=== PATIENT | female | born 1950 | race Caucasian/White ===

== ENCOUNTER 2017-01-10 19:37 | Inpatient (IN) | payer OTHER ==
[~2017-01-10] VITALS: Ht 152.4 cm; Wt 86.0 kg
[2017-01-10 19:49] VITALS: BP 125/72; RESP 19
[2017-01-10] MEDS ORDERED: SOT120 PO (19:50)
[2017-01-10] MEDS ORDERED: [UNRECOGNIZED DRUG - OTHER] PO (19:50)
[2017-01-10] MEDS ORDERED: DIGO250T16 PO (19:50)
[2017-01-10] MEDS ORDERED: LAS20 PO (19:50)
[2017-01-10] MEDS ORDERED: NITROGLYCERIN PO (19:50)
[2017-01-10] MEDS ORDERED: ASPI-664 PO (19:50)
[2017-01-10 20:00] VITALS: Ht 152.4 cm; Wt 86.0 kg
[2017-01-10] MEDS ORDERED: ONDANSETRON 4 MG INJ IV PRN (20:00)
[2017-01-10] MEDS ORDERED: morphine 2 MG INJ IV PRN (20:00)
[2017-01-10 20:20] VITALS: PULSE 74
[2017-01-10 20:22] VITALS: PULSE 74
[2017-01-10] MEDS ORDERED: NACL 0.9% 3 ML SYG IV SCH (20:30)
[2017-01-10] MEDS ORDERED: NITROGLYCERIN PO SCH (21:00)
[2017-01-10] MEDS ORDERED: [UNRECOGNIZED DRUG - OTHER] PO SCH (21:00)
[2017-01-10 21:21] LABS: BASOPHIL # 0.1 10^3/ul (0.0-0.1); BASOPHILS % 0.6 % (0.0-2.0); EOSINOPHILS # 0.2 10^3/ul (0.0-0.5); EOSINOPHILS % 2.1 % (0.0-7.0); HEMATOCRIT 44.2 % (37.0-47.0); HEMOGLOBIN 14.2 g/dl (12.0-16.0); LYMPHOCYTES # 3.7 10^3/ul (0.8-2.9); LYMPHOCYTES % 32.9 % (15.0-51.0); MEAN CORPUSCULAR HEMOGLOBIN 28.1 pg (29.0-33.0); MEAN CORPUSCULAR HGB CONC 32.1 g/dl (32.0-37.0); MEAN CORPUSCULAR VOLUME 87.5 fl (82.0-101.0); MEAN PLATELET VOLUME 10.9 fl (7.4-10.4); MONOCYTE # 0.9 10^3/ul (0.3-0.9); MONOCYTES % 7.7 % (0.0-11.0); NEUTROPHIL # 6.3 10^3/ul (1.6-7.5); NEUTROPHILS % 56.5 % (39.0-77.0); PLATELET COUNT 273 10^3/UL (140-415); RED BLOOD COUNT 5.05 10^6/ul (4.20-5.40); RED CELL DISTRIBUTION WIDTH 15.2 % (11.5-14.5); WHITE BLOOD COUNT 11.1 10^3/ul (4.8-10.8)
[2017-01-10] MEDS ORDERED: LEVO750P IV (21:41)
[2017-01-10] MEDS ORDERED: LISI2.5T59 PO (21:41)
[2017-01-10] MEDS ORDERED: NITR1PAT10 TD (21:41)
[2017-01-10] MEDS ORDERED: DOCU-144 PO (21:41)
[2017-01-10 21:44] LABS: ALANINE AMINOTRANSFERASE 29 IU/L (13-69); ALBUMIN 3.8 g/dl (3.3-4.9); ALBUMIN/GLOBULIN RATIO 1.08; ALKALINE PHOSPHATASE 203 IU/L (42-121); ANION GAP 11 (8-16); ASPARTATE AMINO TRANSFERASE 22 IU/L (15-46); BILIRUBIN,INDIRECT 2.1 mg/dl (0-1.1); BILIRUBIN,TOTAL 2.1 mg/dl (0.2-1.3); BLOOD UREA NITROGEN 14 mg/dl (7-20); CALCIUM 9.6 mg/dl (8.4-10.2); CARBON DIOXIDE 27 mmol/L (21-31); CHLORIDE 105 mmol/L (97-110); CREATININE 0.85 mg/dl (0.44-1.00); GLUCOSE 147 mg/dl (70-220); MAGNESIUM 1.9 mg/dl (1.7-2.5); PHOSPHORUS 3.9 mg/dl (2.5-4.9); POTASSIUM 4.1 mmol/L (3.5-5.1); SODIUM 139 mmol/L (135-144); TOTAL PROTEIN 7.3 g/dl (6.1-8.1)
[2017-01-10 21:56] LABS: TROPONIN-I < 0.012 ng/ml (0.00-0.12)
[2017-01-10] MEDS: SOTALOL 80 MG TAB PO SCH (22:04)
[2017-01-10] MEDS: HEPARIN 5,000 UNIT/0.5 ML VIAL SC SCH (22:13)
[2017-01-10 23:32] VITALS: BP 125/72; RESP 19
[2017-01-11] VITALS (12 sets, daily range): BP systolic 110–139; BP diastolic 57–69; PULSE 53–69; RESP 16–20
[2017-01-11] MEDS ORDERED: GLUCAGON 1 MG INJ IM PRN (00:45)
[2017-01-11] MEDS ORDERED: GLUCOSE GEL 15 GRAM TUBE PO PRN ×2 (00:45)
[2017-01-11] MEDS ORDERED: DEXTROSE 50% 50 ML SYRINGE IV PRN ×2 (00:45)
[2017-01-11] MEDS ORDERED: GLUCOSE GEL 15 GRAM TUBE BUCCAL PRN (00:45)
[2017-01-11] MEDS: ACCU-CHEK XX SCH (01:06)
[2017-01-11] MEDS: FUROSEMIDE 20 MG TAB PO SCH (08:22)
[2017-01-11] MEDS: SOTALOL 80 MG TAB PO SCH ×2 (08:23→20:33)
[2017-01-11] MEDS: INSULIN GLARGINE [LANtus] 3 ML PEN SC SCH (08:36)
[2017-01-11] MEDS: HEPARIN 5,000 UNIT/0.5 ML VIAL SC SCH ×2 (08:36→20:38)
[2017-01-11] MEDS ORDERED: DIGOXIN 0.25 MG TAB PO SCH (09:00)
[2017-01-11] MEDS ORDERED: ASPIRIN (EC) 81 MG TAB PO SCH (09:00)
[2017-01-11] MEDS: INSULIN ASPART [NOVOLOG] 3 ML PEN SC SCH ×3 (12:58→20:34)
[2017-01-11] MEDS: DIGOXIN 0.25 MG TAB PO SCH (13:10)
[2017-01-11] MEDS ORDERED: NITROGLYCERIN (SL) 0.4 MG TAB SL PRN (14:00)
[2017-01-11] MEDS ORDERED: MAGNESIUM HYDROXIDE 30ML CUP PO PRN (14:00)
[2017-01-11] MEDS ORDERED: ACETAMINOPHEN 325 MG TAB PO PRN (14:00)
[2017-01-11] MEDS ORDERED: DOCUSATE SODIUM 100 MG CAP PO PRN (14:00)
[2017-01-11] MEDS ORDERED: NACL 0.9% 3 ML SYG IV SCH (14:00)
[2017-01-11] MEDS ORDERED: BISACODYL 10 MG SUPP PR PRN (14:00)
[2017-01-11] MEDS ORDERED: HYDROCODONE/APAP (5/325) TAB PO PRN ×2 (14:00)
[2017-01-11] MEDS ORDERED: ACETAMINOPHEN 650 MG SUPP PR PRN (14:00)
[2017-01-11] MEDS ORDERED: morphine 2 MG INJ IV PRN (14:00)
--- NOTE | 2017-01-11 14:27 | RADRPT ---
PROCEDURE: XR Chest. CLINICAL INDICATION: Shortness of breath. TECHNIQUE: Single frontal view. COMPARISON: None. FINDINGS: There is mild atelectasis at the lung bases. The lungs are otherwise clear. The heart is enlarged. There is calcification in the aorta consistent with atherosclerosis. There is no pleural effusion. There is no pneumothorax. IMPRESSION: 1. Mild atelectasis at the lung bases. 2. Cardiomegaly and atherosclerosis. RPTAT: QQ .Gerhard Maradiaga MD, MD Date Time Electronically viewed and signed by .Gerhard Maradiaga MD, MD on 01/11/2017 14:26 .R/
--- NOTE | 2017-01-11 14:34 | HP ---
Date/Time of Note Date/Time of Note DATE: 01/11/17 TIME: 14:23 Assessment/Plan VTE Prophylaxis VTE Prophylaxis Intervention: SCD's Lines/Catheters IV [facility]from [facility] Saline Lock Assessment/Plan Chief Complaint/Hosp Course Assessment and plan 1. Reported dyspnea on exertion and diaphoresis likely secondary to CHF exacerbation. Patient with known history of systolic CHF. Also noted with elevated BNP from previous hospital. Follow-up chest x-ray. Slater Apprentice consultation to follow. We will follow up an echocardiogram. 2. Reported extensive history of CAD. Patient resumed on adequate therapy as well as statin medication. Follow-up with aerobics teacher recommendations. of note, patient had been reportedly advised for coronary artery bypass for several years ago however refused at that time. Will follow up with cardiology recommendations. Continue telemetry monitoring for now. 3. Essential hypertension. Will resume patient's antihypertensives and adjust 5. Dyspnea. Follow-up on fasting with panel. Start on statin medication. 6. History of diabetes. Noted with A1c above 8. Insulin regimen. Blood dyspnea. 7. History of CVA. No reported past residual deficits. 8.. History of depression. Stable at present. Will monitor for now. Admission Process time >40 minutes Discussed plan of care with Dr. Ravi Problems: HPI/ROS Admit Date/Time Admit Date/Time Jan 10, 2017 at 19:37 Hx of Present Illness This is a 66-year-old female with reported past medical history of CVA in 2016 with no residual deficit, coronary artery disease with reported myocardial infarction 4 years ago, diabetes not on insulin, hypertension, systolic and diastolic heart failure, dyslipidemia, who reportedly went to [facility] from outside hospital ([facility]) due to insurance issue due to his reported diaphoresis and dyspnea on exertion. Patient of note does fly back and forth from [place] to visit her daughter and also has an extensive cardiac history reportedly being treated for a myocardial infarction in around 4 years ago. He of note was at that time told she had severe coronary artery disease requiring coronary artery bypass however despite multiple recommendations to the patient to have procedure she refused. I spoke with the daughter who had a report showing that she had an LAD with severe stenosis of the proximal portion and mid part total cut off. Per the report also showed her to have RCA with severe stenosis at the proximal and mid part. It also reported circumflex with moderate stenosis at the proximal portion. Patient's daughter did report that the patient has been in and out of the hospital for the past 10 years due to reported chest pain but refused surgical intervention at that time. Patient did have initial troponins which were negative. Her previous echocardiogram done per report showed her to have septal and apical akinesis with ejection fraction of 40%. Her initial d-dimer was negative however she did have a proBNP of 1197. A1c was also seen at 8.4 she did also have slight leukocytosis with white count of 11.1 remained afebrile. Currently the patient denies any chest pain or shortness of breath and she no longer reports being diaphoretic. No reports of sick contacts prior to this admission. He was per report from [facility] that patient was recommended for possible angiogram due to her severe long-standing coronary artery disease. We will evaluate her for the aformentiond issues. ROS 12 point review of systems obtained entirely negative except as mentioned in history of present illness PMH/Family/Social Past Medical History Medical/surgical history CVA in 2016 with no residual deficit, coronary artery disease with reported myocardial infarction 4 years ago, diabetes not on insulin, hypertension, systolic and diastolic heart failure, dyslipidemia Social History Smoking Status: Never smoker Exam/Review of Systems Vital Signs Vitals Vital Signs Date Time Temp Pulse Resp B/P Pulse Ox O2 Delivery O2 Flow Rate FiO2 01/11/17 12:31 63 01/11/17 11:20 98.4 20 139/67 97 01/10/17 20:00 Nasal Cannula 2.0 Intake and Output 01/10/17 01/10/17 01/11/17 15:00 23:00 07:00 Intake Total 240 ml Balance 240 ml Exam Constitutional: alert, oriented Psych: nl mood/affect Head: normocephalic Neck: supple, No jvd Respiratory: clear to auscultation, normal air movement Cardiovascular: other (bradycardic to regular rate ) Gastrointestinal: non-tender, soft Musculoskeletal: nl extremities to inspection Extremities: normal pulses Neurological: MANAGEMENT INFORMATION SYSTEMS DIRECTOR II-XII intact, nl mental status, nl speech Skin: nl turgor Labs Result Diagram: 01/10/17210901/10/172109 Medications Medications Current Medications Furosemide (Lasix) 20 mg DAILY PO Last administered on 01/11/17t 08:22; Admin Dose 20 MG; Start 01/11/17 at 09:00 Sotalol HCl (Betapace) 40 mg BID PO Last administered on 01/11/17 08:23; Admin Dose 40 MG; Start 01/10/17 at 21:00 Miscellaneous Information 5 mg BID PO ; Start 01/10/17 at 21:00; Status UNV Miscellaneous Information 2.6 mg BID PO ; Start 01/10/17 at 21:00; Status UNV Heparin Sodium (Porcine) (Heparin (5000 Units/0.5 ml)) 5,000 unit BID SC Last administered on 01/11/17 08:36; Admin Dose 5,000 UNIT; Start 01/10/17 at 21:00 Ondansetron HCl (Zofran Inj) 4 mg Q6H PRN IV NAUSEA AND/OR VOMITING; Start at 20:00 Diagnostic Test (Pha) (Accu-Chek) 1 ea 02 XX ; Start 01/11/17 at 02:00 Insulin Glargine (Lantus) 10 unit DAILY@08 SC Last administered on 01/11/17 08 :36; Admin Dose 10 UNIT; Start 01/11/17 at 08:00 Miscellaneous Information 1 ea NOTE XX ; Start 01/11/17 at 00:45 Glucose (Glutose) 15 gm Q15M PRN PO DECREASED GLUCOSE; Start 01/11/17 at 00:45 Glucose (Glutose) 22.5 gm Q15M PRN PO DECREASED GLUCOSE; Start 01/11/17 at 00: 45 Dextrose (D50w Syringe) 25 ml Q15M PRN IV DECREASED GLUCOSE; Start 01/11/17 at 00:45 Dextrose (D50w Syringe) 50 ml Q15M PRN IV DECREASED GLUCOSE; Start 01/11/17 at 00:45 Glucagon (Glucagen) 1 mg Q15M PRN IM DECREASED GLUCOSE; Start 01/11/17 at 00:45 Glucose (Glutose) 15 gm Q15M PRN BUCCAL DECREASED GLUCOSE; Start 01/11/17 at 00 :45 Influenza Virus Vaccine (Fluzone) 0.5 ml ONCE ONCE IM* ; Start 01/12/17 at 09:00 ; Stop 01/12/17 at 09:01 Digoxin (Digoxin) 0.25 mg DAILY@13 PO Last administered on 01/11/17 13:10; Admin Dose 0.25 MG; Start 01/11/17 at 13:00 Diagnostic Test (Pha) (Accu-Chek) 1 ea 02 XX ; Start 01/12/17 at 02:00 Docusate Sodium (Colace) 100 mg BID PO ; Start 01/11/17 at 21:00 Lisinopril (Zestril) 2.5 mg DAILY PO ; Start 01/12/17 at 09:00; Status UNV Acetaminophen (Tylenol Tab) 650 mg Q6H PRN PO PAIN LEVEL 1-3 OR FEVER; Start at 14:00 Acetaminophen (Tylenol Supp) 650 mg Q6H PRN [place] PAIN LEVEL 1-3 OR FEVER; Start 01/11/17 at 14:00 Acetaminophen/ Hydrocodone Bitart ([place] (5/325)) 1 tab Q6H PRN PO MODERATE PAIN LEVEL 4-6; Start 01/11/17 at 14:00 Acetaminophen/ Hydrocodone Bitart ([place] (5/325)) 2 tab Q6H PRN PO SEVERE PAIN LEVEL 7-10; Start 01/11/17 at 14:00 Morphine Sulfate (morphine) 2 mg Q4H PRN IV SEVERE PAIN LEVEL 7-10; Start 01/11 at 14:00 Docusate Sodium (Colace) 100 mg Q12H PRN PO CONSTIPATION; Start 01/11/17 at 14: 00 Magnesium Hydroxide (Milk Of Mag) 30 ml DAILY PRN PO CONSTIPATION; Start at 14:00 Bisacodyl (Dulcolax Supp) 10 mg DAILY PRN [place] CONSTIPATION; Start 01/11/17 at 14 :00 Famotidine (Pepcid Iv) 20 mg DAILY IV ; Start 01/11/17 at 14:30 Aspirin (Aspirin) 81 mg DAILY PO ; Start 01/13/17 at 09:00; Status UNV Nitroglycerin (Nitroglycerin (Sl Tab) 0.4 Mg) 1 tab Q5M PRN SL CHEST PAIN; Start 01/11/17 at 14:00 TROY MANCIA Jan 11, 2017 14:34
[2017-01-11 15:05] LABS: CREATINE KINASE 51 IU/L (23-200)
[2017-01-11 15:18] LABS: CK-MB 0.52 ng/ml (0.0-2.4)
[2017-01-11] MEDS: FAMOTIDINE 20 MG INJ IV SCH (15:37)
[2017-01-11] MEDS: LISINOPRIL 5 MG TAB PO SCH (15:37)
[2017-01-11 15:53] LABS: TROPONIN-I < 0.012 ng/ml (0.00-0.12)
--- NOTE | 2017-01-11 16:11 | RADRPT ---
PROCEDURE: Ultrasound of the bilateral lower extremity venous system. CLINICAL INDICATION: Bilateral leg pain and swelling, deep venous thrombosis TECHNIQUE: Feliz scale with and without compression, color doppler, spectral doppler of the venous system of the bilateral lower extremities was performed. Venous augmentation maneuvers were utilized . COMPARISON: No prior studies are available for comparison. FINDINGS: Right: Common femoral vein: Patent. Femoral vein: Patent. Popliteal vein: Patent. Calf veins: Patent. No soft tissue abnormalities are identified. Left: Common femoral vein: Patent. Femoral vein: Patent. Popliteal vein: Patent. Calf veins: Patent. No soft tissue abnormalities are identified. IMPRESSION: No evidence of a deep vein thrombosis within the bilateral lower extremities. RPTAT: AADD .Riaz David MD, MD Date Time Electronically viewed and signed by .Riaz David MD, on 01/11/2017 16:11 .B/
[2017-01-11 20:19] LABS: CREATINE KINASE 48 IU/L (23-200)
[2017-01-11 20:32] LABS: CK-MB 0.55 ng/ml (0.0-2.4)
[2017-01-11 20:34] LABS: TROPONIN-I < 0.012 ng/ml (0.00-0.12)
[2017-01-11] MEDS: DOCUSATE SODIUM 100 MG CAP PO SCH (20:34)
[2017-01-12] VITALS (11 sets, daily range): BP systolic 91–113; BP diastolic 52–58; PULSE 51–63; RESP 16–20
[2017-01-12] MEDS: ACCU-CHEK XX SCH ×2 (01:57)
[2017-01-12] MEDS ORDERED: ACCU-CHEK XX SCH (02:00)
[2017-01-12 07:06] LABS: BASOPHIL # 0.1 10^3/ul (0.0-0.1); BASOPHILS % 0.9 % (0.0-2.0); EOSINOPHILS # 0.4 10^3/ul (0.0-0.5); EOSINOPHILS % 4.1 % (0.0-7.0); HEMATOCRIT 42.1 % (37.0-47.0); HEMOGLOBIN 13.9 g/dl (12.0-16.0); LYMPHOCYTES # 4.2 10^3/ul (0.8-2.9); LYMPHOCYTES % 38.5 % (15.0-51.0); MEAN CORPUSCULAR HEMOGLOBIN 29.2 pg (29.0-33.0); MEAN CORPUSCULAR VOLUME 88.4 fl (82.0-101.0); MEAN PLATELET VOLUME 11.3 fl (7.4-10.4); MONOCYTE # 0.9 10^3/ul (0.3-0.9); MONOCYTES % 8.4 % (0.0-11.0); NEUTROPHIL # 5.1 10^3/ul (1.6-7.5); NEUTROPHILS % 47.7 % (39.0-77.0); PLATELET COUNT 257 10^3/UL (140-415); RED BLOOD COUNT 4.76 10^6/ul (4.20-5.40); RED CELL DISTRIBUTION WIDTH 14.7 % (11.5-14.5); WHITE BLOOD COUNT 10.8 10^3/ul (4.8-10.8)
[2017-01-12 07:15] LABS: ALBUMIN 3.3 g/dl (3.3-4.9); ALBUMIN/GLOBULIN RATIO 0.97; BILIRUBIN,INDIRECT 1.6 mg/dl (0-1.1); BILIRUBIN,TOTAL 1.6 mg/dl (0.2-1.3); CALCIUM 9.4 mg/dl (8.4-10.2); CHOL/HDL RATIO 3.9 RATIO; CREATININE 0.81 mg/dl (0.44-1.00); PHOSPHORUS 4.8 mg/dl (2.5-4.9); POTASSIUM 3.9 mmol/L (3.5-5.1); TOTAL PROTEIN 6.7 g/dl (6.1-8.1)
[2017-01-12 07:28] LABS: T3 UPTAKE 36.4 % (23.5-40.5)
[2017-01-12 07:41] LABS: THYROID STIMULATING HORMONE 0.045 MIU/L (0.465-4.680)
[2017-01-12] MEDS: INSULIN ASPART [NOVOLOG] 3 ML PEN SC SCH ×4 (07:42→20:59)
[2017-01-12] MEDS: INSULIN GLARGINE [LANtus] 3 ML PEN SC SCH (07:54)
[2017-01-12] MEDS ORDERED: INFLUENZA VIRUS VACCINE 0.5 ML (DISPENSING) IM* ONE (09:00)
[2017-01-12] MEDS: FUROSEMIDE 20 MG TAB PO SCH (09:08)
[2017-01-12] MEDS: SOTALOL 80 MG TAB PO SCH ×2 (09:09→20:55)
[2017-01-12] MEDS: FAMOTIDINE 20 MG INJ IV SCH (09:09)
[2017-01-12] MEDS: LISINOPRIL 5 MG TAB PO SCH (09:09)
[2017-01-12] MEDS: HEPARIN 5,000 UNIT/0.5 ML VIAL SC SCH ×2 (09:12→20:59)
[2017-01-12] MEDS: DOCUSATE SODIUM 100 MG CAP PO SCH ×2 (09:15→20:56)
[2017-01-12] MEDS: ASPIRIN 81 MG TAB PO SCH (09:16)
[2017-01-12] MEDS ORDERED: [UNRECOGNIZED DRUG - REMARK] XX SCH (10:00)
[2017-01-12] MEDS: [UNRECOGNIZED DRUG - REMARK] XX SCH ×2 (10:00→18:00)
--- NOTE | 2017-01-12 12:17 | PN ---
Date/Time of Note Date/Time of Note DATE: 01/12/17 TIME: 12:15 Assessment/Plan VTE Prophylaxis VTE Prophylaxis Intervention: SCD's Lines/Catheters IV [facility]from [facility] Saline Lock Urinary Cath still in place: No Assessment/Plan Chief Complaint/Hosp Course Assessment and plan 1. Reported dyspnea on exertion and diaphoresis likely secondary to CHF exacerbation. Patient with known history of systolic CHF. Also noted with elevated BNP from previous hospital. Really improved at present. Await cardiology recommendations. Echocardiogram pending.. 2. Reported extensive history of CAD. Patient resumed on statin medication. Follow-up with rf test technician recommendations. of note, patient had been reportedly advised for coronary artery bypass for several years ago however refused at that time. Will follow up with cardiology recommendations. Continue telemetry monitoring for now. 3. Essential hypertension. Will resume patient's antihypertensives and adjust 5. Dyslipidemia. Continue on statin medication 6. History of diabetes. Noted with A1c above 8. Continue insulin regimen. 7. History of CVA. No reported past residual deficits. 8.. History of depression. Stable at present. Will monitor for now. Disposition plan: Continue inpatient monitoring. Seismic Computer consultation pending. Follow-up an echocardiogram Discussed plan of care with Dr. Ravi Problems: Subjective 24 Hr Interval Summary Free Text/Dictation No reports of chest pain. Comfortable at present Exam/Review of Systems Vital Signs Vitals Vital Signs Date Time Temp Pulse Resp B/P Pulse Ox O2 Delivery O2 Flow Rate FiO2 01/12/17 12:00 56 01/12/17 11:01 97.5 20 91/52 94 01/10/17 20:00 Nasal Cannula 2.0 Intake and Output 01/11/17 01/11/17 01/12/17 15:00 23:00 07:00 Intake Total 600 ml 300 ml Output Total 800 ml Balance -200 ml 300 ml Exam Constitutional: alert, oriented Psych: nl mood/affect Head: normocephalic Neck: supple, No jvd Respiratory: clear to auscultation, normal air movement Cardiovascular: other (bradycardic to regular rate ) Gastrointestinal: non-tender, soft Musculoskeletal: nl extremities to inspection Extremities: normal pulses 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, nl mental status, nl speech Skin: nl turgor Results Result Diagram: 10/1/17 0605 10/1/17 0605 Results 24 hrs Laboratory Tests Test 01/11/17 12:42 01/11/17 14:32 01/11/17 17:39 01/11/17 19:35 Bedside Glucose 176 135 Creatine Kinase 51 48 Creatine Kinase Index 1.0 1.1 Creatinine Kinase MB (Mass) 0.52 0.55 Troponin I < 0.012 < 0.012 Test 01/11/17 20:31 01/12/17 01:53 01/12/17 06:05 01/12/17 07:41 Bedside Glucose 156 109 127 White Blood Count 10.8 Red Blood Count 4.76 Hemoglobin 13.9 Hematocrit 42.1 Mean Corpuscular Volume 88.4 Mean Corpuscular Hemoglobin 29.2 Mean Corpuscular Hemoglobin Concent 33.0 Red Cell Distribution Width 14.7 H Platelet Count 257 Mean Platelet Volume 11.3 H Neutrophils % 47.7 Lymphocytes % 38.5 Monocytes % 8.4 Eosinophils % 4.1 Basophils % 0.9 Nucleated Red Blood Cells % 0.0 Neutrophils # 5.1 Lymphocytes # 4.2 H Monocytes # 0.9 Eosinophils # 0.4 Basophils # 0.1 Nucleated Red Blood Cells # 0.0 Sodium Level 140 Potassium Level 3.9 Chloride Level 104 Carbon Dioxide Level 29 Anion Gap 11 Blood Urea Nitrogen 17 Creatinine 0.81 Glucose Level 120 Calcium Level 9.4 Phosphorus Level 4.8 Total Bilirubin 1.6 H Direct Bilirubin 0.00 Indirect Bilirubin 1.6 H Aspartate Amino Transf (AST/SGOT) 20 Alanine Aminotransferase (ALT/SGPT) 25 Alkaline Phosphatase 185 H Total Protein 6.7 Albumin 3.3 Globulin 3.40 H Albumin/Globulin Ratio 0.97 Triglycerides Level 163 H Cholesterol Level 126 LDL Cholesterol, Calculated 61 HDL Cholesterol 32 L Cholesterol/HDL Ratio 3.9 Thyroid Stimulating Hormone (TSH) 0.045 L Free Thyroxine Index 5.31 H Thyroxine (T4) 14.6 H Triiodothyronine (T3) Uptake 36.4 Test 01/12/17 11:57 Bedside Glucose 193 Medications Medications Current Medications Furosemide (Lasix) 20 mg DAILY PO Last administered on 01/12/17 09:08; Admin Dose 20 MG; Start 01/11/17 at 09:00 Sotalol HCl (Betapace) 40 mg BID PO Last administered on 01/12/17 09:09; Admin Dose 40 MG; Start 01/10/17 at 21:00 Miscellaneous Information 5 mg BID PO ; Start 01/10/17 at 21:00; Status UNV Miscellaneous Information 2.6 mg BID PO ; Start 01/10/17 at 21:00; Status UNV Heparin Sodium (Porcine) (Heparin (5000 Units/0.5 ml)) 5,000 unit BID SC Last administered on 01/12/17 09:12; Admin Dose 5,000 UNIT; Start 01/10/17 at 21:00 Ondansetron HCl (Zofran Inj) 4 mg Q6H PRN IV NAUSEA AND/OR VOMITING; Start at 20:00 Diagnostic Test (Pha) (Accu-Chek) 1 ea 02 XX ; Start 01/11/17 at 02:00 Insulin Glargine (Lantus) 10 unit DAILY@08 SC Last administered on 01/12/17 07 :54; Admin Dose 10 UNIT; Start 01/11/17 at 08:00 Miscellaneous Information 1 ea NOTE XX ; Start 01/11/17 at 00:45 Glucose (Glutose) 15 gm Q15M PRN PO DECREASED GLUCOSE; Start 01/11/17 at 00:45 Glucose (Glutose) 22.5 gm Q15M PRN PO DECREASED GLUCOSE; Start 01/11/17 at 00: 45 Dextrose (D50w Syringe) 25 ml Q15M PRN IV DECREASED GLUCOSE; Start 01/11/17 at 00:45 Dextrose (D50w Syringe) 50 ml Q15M PRN IV DECREASED GLUCOSE; Start 01/11/17 at 00:45 Glucagon (Glucagen) 1 mg Q15M PRN IM DECREASED GLUCOSE; Start 01/11/17 at 00:45 Glucose (Glutose) 15 gm Q15M PRN BUCCAL DECREASED GLUCOSE; Start 01/11/17 at 00 :45 Digoxin (Digoxin) 0.25 mg DAILY@13 PO Last administered on 01/11/17 13:10; Admin Dose 0.25 MG; Start 01/11/17 at 13:00 Diagnostic Test (Pha) (Accu-Chek) 1 ea 02 XX ; Start 01/12/17 at 02:00 Docusate Sodium (Colace) 100 mg BID PO Last administered on 01/12/17 09:15; Admin Dose 100 MG; Start 01/11/17 at 21:00 Lisinopril (Zestril) 2.5 mg DAILY PO Last administered on 01/12/17 09:09; Admin Dose 2.5 MG; Start 01/11/17 at 14:30 Acetaminophen (Tylenol Tab) 650 mg Q6H PRN PO PAIN LEVEL 1-3 OR FEVER; Start at 14:00 Acetaminophen (Tylenol Supp) 650 mg Q6H PRN [place] PAIN LEVEL 1-3 OR FEVER; Start 01/11/17 at 14:00 Acetaminophen/ Hydrocodone Bitart ([place] (5/325)) 1 tab Q6H PRN PO MODERATE PAIN LEVEL 4-6; Start 01/11/17 at 14:00 Acetaminophen/ Hydrocodone Bitart ([place] (5/325)) 2 tab Q6H PRN PO SEVERE PAIN LEVEL 7-10; Start 01/11/17 at 14:00 Morphine Sulfate (morphine) 2 mg Q4H PRN IV SEVERE PAIN LEVEL 7-10; Start 01/11 at 14:00 Docusate Sodium (Colace) 100 mg Q12H PRN PO CONSTIPATION; Start 01/11/17 at 14: 00 Magnesium Hydroxide (Milk Of Mag) 30 ml DAILY PRN PO CONSTIPATION; Start at 14:00 Bisacodyl (Dulcolax Supp) 10 mg DAILY PRN [place] CONSTIPATION; Start 01/11/17 at 14 :00 Famotidine (Pepcid Iv) 20 mg DAILY IV Last administered on 01/12/17 09:09; Admin Dose 20 MG; Start 01/11/17 at 14:30 Aspirin (Aspirin) 81 mg DAILY PO Last administered on 01/12/17 09:16; Admin Dose 81 MG; Start 01/12/17 at 09:00 Nitroglycerin (Nitroglycerin (Sl Tab) 0.4 Mg) 1 tab Q5M PRN SL CHEST PAIN; Start 01/11/17 at 14:00 Miscellaneous Information (*Order Clarification Bulletin) NITROGLYCERIN CAP ( CHECK DOSE)... Q8H XX ; Start 01/12/17 at 10:00 Miscellaneous Information (*Order Clarification Bulletin) GLIBENCLAMIDE IS NON FORMULARY..PLE... Q8H XX ; Start 01/12/17 at 10:00 Atorvastatin Calcium (Lipitor) 40 mg HS PO ; Start 01/12/17 at 21:00 TROY MANCIA Jan 12, 2017 12:17
[2017-01-12] MEDS: DIGOXIN 0.25 MG TAB PO SCH (13:28)
--- NOTE | 2017-01-12 15:48 | CONS ---
DATE OF ADMISSION: 01/10/2017 DATE OF CONSULTATION: 01/12/2017 HISTORY OF PRESENT ILLNESS: Ms. Cano is a 66-year-old woman with known severe ischemic cardiomyopathy, and three-vessel disease. She underwent angiography approximately 5 years ago in [place]. Her daughter has the report available. It showed a chronically occluded mid LAD, as well as additional disease in the RCA and circumflex. Her daughter reports that currently she becomes short of breath and diaphoretic with minimal exertion. She has had several hospitalizations for these symptoms and presented to [facility] on January 10 with similar complaints. Currently she is comfortable. REVIEW OF SYSTEMS: A complete review of systems was performed. No other complaints. PAST MEDICAL HISTORY: 1. Severe ischemic cardiomyopathy, ejection fraction of 30-35 percent. 2. Class 3 congestive heart failure. 3. Diabetes. 4. Hypertension. 5. Hyperlipidemia. 6. History of CVA in 2016. SOCIAL HISTORY: Denies alcohol or tobacco use. MEDICATION: As reported from home: 1. Furosemide 20 mg daily. 2. Sotalol 40 mg b.i.d. 3. Nitroglycerin. 4. Digoxin 5. Aspirin. PHYSICAL EXAMINATION: VITAL SIGNS: She is in no distress. She is an obese 66-year-old woman. Temperature 97.5, pulse 56, blood pressure 91/52. LUNGS: Clear. HEART: Reveals a regular rate and rhythm. ABDOMEN: Soft and obese. EXTREMITIES: No edema. MEDICATION: Current medications: 1. Atorvastatin for mild edema. 2. Lisinopril. 3. Aspirin. 4. Digoxin. 5. Furosemide. 6. Lantus. ASSESSMENT: 1. Chronic severe angina with symptoms on minimal exertion. 2. Known severe triple-vessel disease. PLAN: 1. At this time, I will order a thallium viability study to assess whether revascularization would be valuable. 2. The patient was discussed with her daughter in detail and she reports the patient is currently agreeable for whatever tests that will be beneficial. 3. The patient reportedly had a questionable apical thrombus on echocardiogram at [facility]. I will ask for repeat echocardiogram to re-evaluate. 4. Unfortunately she is unable to tolerate it beta-andriy due to hypotension. Dictated By: Evelio Hensley MD /j carlos/sam /Document#: [id number]
[2017-01-12] MEDS: ATORVASTATIN 40 MG TAB PO SCH (20:56)
[2017-01-12] MEDS: ZOLPIDEM 5 MG TAB PO PRN ×2 (21:00→23:27)
[2017-01-13] VITALS (12 sets, daily range): BP systolic 109–177; BP diastolic 53–84; PULSE 52–60; RESP 16–20
[2017-01-13] MEDS: ACCU-CHEK XX SCH ×2 (01:42)
[2017-01-13] MEDS: [UNRECOGNIZED DRUG - REMARK] XX SCH ×3 (02:00→11:33)
[2017-01-13 06:29] LABS: BASOPHIL # 0.1 10^3/ul (0.0-0.1); BASOPHILS % 0.9 % (0.0-2.0); EOSINOPHILS # 0.5 10^3/ul (0.0-0.5); EOSINOPHILS % 4.9 % (0.0-7.0); HEMATOCRIT 41.1 % (37.0-47.0); HEMOGLOBIN 13.2 g/dl (12.0-16.0); LYMPHOCYTES # 4.2 10^3/ul (0.8-2.9); LYMPHOCYTES % 39.2 % (15.0-51.0); MEAN CORPUSCULAR HEMOGLOBIN 28.8 pg (29.0-33.0); MEAN CORPUSCULAR HGB CONC 32.1 g/dl (32.0-37.0); MEAN CORPUSCULAR VOLUME 89.7 fl (82.0-101.0); MEAN PLATELET VOLUME 11.3 fl (7.4-10.4); MONOCYTE # 0.8 10^3/ul (0.3-0.9); MONOCYTES % 7.6 % (0.0-11.0); NEUTROPHILS % 46.8 % (39.0-77.0); PLATELET COUNT 246 10^3/UL (140-415); RED BLOOD COUNT 4.58 10^6/ul (4.20-5.40); RED CELL DISTRIBUTION WIDTH 15.1 % (11.5-14.5); WHITE BLOOD COUNT 10.7 10^3/ul (4.8-10.8)
[2017-01-13 07:20] LABS: CREATININE 0.79 mg/dl (0.44-1.00); POTASSIUM 3.9 mmol/L (3.5-5.1)
[2017-01-13 07:29] LABS: CALCIUM 8.9 mg/dl (8.4-10.2)
[2017-01-13] MEDS: ASPIRIN 81 MG TAB PO SCH (08:03)
[2017-01-13] MEDS: DOCUSATE SODIUM 100 MG CAP PO SCH ×2 (08:04→20:21)
[2017-01-13] MEDS: INSULIN ASPART [NOVOLOG] 3 ML PEN SC SCH ×4 (08:04→20:28)
[2017-01-13] MEDS: HEPARIN 5,000 UNIT/0.5 ML VIAL SC SCH ×2 (08:05→20:27)
[2017-01-13] MEDS: INSULIN GLARGINE [LANtus] 3 ML PEN SC SCH (08:05)
[2017-01-13] MEDS: FAMOTIDINE 20 MG INJ IV SCH (08:06)
[2017-01-13] MEDS: FUROSEMIDE 20 MG TAB PO SCH (08:06)
[2017-01-13] MEDS: LISINOPRIL 5 MG TAB PO SCH (08:06)
[2017-01-13] MEDS: SOTALOL 80 MG TAB PO SCH ×2 (08:07→20:21)
--- NOTE | 2017-01-13 11:24 | PN ---
Date/Time of Note Date/Time of Note DATE: 01/13/17 TIME: 11:10 Assessment/Plan VTE Prophylaxis VTE Prophylaxis Intervention: heparin Lines/Catheters IV C[facility]ter Type (from [facility] Urinary Cath still in place: No Assessment/Plan Chief Complaint/Hosp Course 1. Dyspnea on exertion. Patient has known history of ischemic cardiomyopathy. Chest x-ray showed no evidence of any acute CHF. The patient being followed by cardiology. The patient is scheduled for a nuclear medicine cardiac stress test. Continue WOODY inhibitors and digoxin. Unable to tolerate beta blockers because of bradycardia. 2. CAD with known triple-vessel disease. Continue aspirin and statins. 3. Type 2 diabetes mellitus. Hemoglobin A1c 8.6. Continue sliding scale insulin. 4. Dyslipidemia. Continue statins. 5. History of CVA. Continue statins and aspirin. 6. Fluids, electrolytes, and nutrition. Carbohydrate controlled, low- cholesterol diet. 7. DVT prophylaxis. Subcutaneous heparin. 8. Plan. Continue current management. Await cardiac stress test and further recommendations from cardiology. Case discussed with Dr. Serra. Problems: Subjective 24 Hr Interval Summary Free Text/Dictation Denies any chest pain at this time. Denies any dyspnea. Exam/Review of Systems Vital Signs Vitals Vital Signs Date Time Temp Pulse Resp B/P Pulse Ox O2 Delivery O2 Flow Rate FiO2 01/13/17 08:12 58 01/13/17 07:18 97.7 20 109/53 95 01/13/17 01:30 21 01/10/17 20:00 Nasal Cannula 2.0 Intake and Output 01/12/17 01/12/17 01/13/17 15:00 23:00 07:00 Intake Total 600 ml 450 ml Balance 600 ml 450 ml Exam General: Obese 66 year-old female lying in bed in no apparent distress. HEENT: Normocephalic, atraumatic. Eyes: Anicteric sclerae, conjunctivae clear. ENT: Nasal septum midline, oral mucosa moist. Neck supple, no JVD noticed. Respiratory: Bilaterally diminished breath sounds. No use of accessory muscles of respiration. No adventitious breath sounds. Cardiovascular: S1, S2 heard. Regular rate and rhythm. Abdomen: Soft, nontender, and nondistended. Bowel sounds positive in all 4 quadrants. Genitourinary: Deferred. Extremities: No cyanosis, no clubbing, no edema. Peripheral pulses palpable. Neurologic: Cranial nerves II through XII grossly intact. The patient is awake, alert, and oriented. Skin: Normal skin turgor. No skin rashes. Results Result Diagram: 01/13/17 0546 01/13/17 0546 Results 24 hrs Laboratory Tests Test 01/12/17 11:57 01/12/17 17:25 01/12/17 20:53 01/13/17 05:46 Bedside Glucose 193 181 133 White Blood Count 10.7 Red Blood Count 4.58 Hemoglobin 13.2 Hematocrit 41.1 Mean Corpuscular Volume 89.7 Mean Corpuscular Hemoglobin 28.8 L Mean Corpuscular Hemoglobin Concent 32.1 Red Cell Distribution Width 15.1 H Platelet Count 246 Mean Platelet Volume 11.3 H Neutrophils % 46.8 Lymphocytes % 39.2 Monocytes % 7.6 Eosinophils % 4.9 Basophils % 0.9 Nucleated Red Blood Cells % 0.0 Neutrophils # 5.0 Lymphocytes # 4.2 H Monocytes # 0.8 Eosinophils # 0.5 Basophils # 0.1 Nucleated Red Blood Cells # 0.0 Sodium Level 140 Potassium Level 3.9 Chloride Level 107 Carbon Dioxide Level 27 Anion Gap 10 Blood Urea Nitrogen 16 Creatinine 0.79 Glucose Level 166 Calcium Level 8.9 Test 01/13/17 07:58 Bedside Glucose 141 Medications Medications Current Medications Furosemide (Lasix) 20 mg DAILY PO Last administered on 01/13/17 08:06; Admin Dose 20 MG; Start 01/11/17 at 09:00 Sotalol HCl (Betapace) 40 mg BID PO Last administered on 01/13/17 08:07; Admin Dose 40 MG; Start 01/10/17 at 21:00 Miscellaneous Information 2.6 mg BID PO ; Start 01/10/17 at 21:00; Status UNV Heparin Sodium (Porcine) (Heparin (5000 Units/0.5 ml)) 5,000 unit BID SC Last administered on 01/13/17 08:05; Admin Dose 5,000 UNIT; Start 01/10/17 at 21:00 Ondansetron HCl (Zofran Inj) 4 mg Q6H PRN IV NAUSEA AND/OR VOMITING; Start at 20:00 Diagnostic Test (Pha) (Accu-Chek) 1 ea 02 XX ; Start 01/11/17 at 02:00 Insulin Glargine (Lantus) 10 unit DAILY@08 SC Last administered on 01/13/17 08 :05; Admin Dose 10 UNIT; Start 01/11/17 at 08:00 Miscellaneous Information 1 ea NOTE XX ; Start 01/11/17 at 00:45 Glucose (Glutose) 15 gm Q15M PRN PO DECREASED GLUCOSE; Start 01/11/17 at 00:45 Glucose (Glutose) 22.5 gm Q15M PRN PO DECREASED GLUCOSE; Start 01/11/17 at 00: 45 Dextrose (D50w Syringe) 25 ml Q15M PRN IV DECREASED GLUCOSE; Start 01/11/17 at 00:45 Dextrose (D50w Syringe) 50 ml Q15M PRN IV DECREASED GLUCOSE; Start 01/11/17 at 00:45 Glucagon (Glucagen) 1 mg Q15M PRN IM DECREASED GLUCOSE; Start 01/11/17 at 00:45 Glucose (Glutose) 15 gm Q15M PRN BUCCAL DECREASED GLUCOSE; Start 01/11/17 at 00 :45 Digoxin (Digoxin) 0.25 mg DAILY@13 PO Last administered on 01/12/17 13:28; Admin Dose 0.25 MG; Start 01/11/17 at 13:00 Docusate Sodium (Colace) 100 mg BID PO Last administered on 01/13/17 08:04; Admin Dose 100 MG; Start 01/11/17 at 21:00 Lisinopril (Zestril) 2.5 mg DAILY PO Last administered on 01/13/17 08:06; Admin Dose 2.5 MG; Start 01/11/17 at 14:30 Acetaminophen (Tylenol Tab) 650 mg Q6H PRN PO PAIN LEVEL 1-3 OR FEVER; Start at 14:00 Acetaminophen (Tylenol Supp) 650 mg Q6H PRN [place] PAIN LEVEL 1-3 OR FEVER; Start 01/11/17 at 14:00 Acetaminophen/ Hydrocodone Bitart ([place] (5/325)) 1 tab Q6H PRN PO MODERATE PAIN LEVEL 4-6; Start 01/11/17 at 14:00 Acetaminophen/ Hydrocodone Bitart ([place] (5/325)) 2 tab Q6H PRN PO SEVERE PAIN LEVEL 7-10; Start 01/11/17 at 14:00 Morphine Sulfate (morphine) 2 mg Q4H PRN IV SEVERE PAIN LEVEL 7-10; Start 01/11 at 14:00 Docusate Sodium (Colace) 100 mg Q12H PRN PO CONSTIPATION; Start 01/11/17 at 14: 00 Magnesium Hydroxide (Milk Of Mag) 30 ml DAILY PRN PO CONSTIPATION; Start at 14:00 Bisacodyl (Dulcolax Supp) 10 mg DAILY PRN [place] CONSTIPATION; Start 01/11/17 at 14 :00 Famotidine (Pepcid Iv) 20 mg DAILY IV Last administered on 01/13/17 08:06; Admin Dose 20 MG; Start 01/11/17 at 14:30 Aspirin (Aspirin) 81 mg DAILY PO Last administered on 01/13/17 08:03; Admin Dose 81 MG; Start 01/12/17 at 09:00 Nitroglycerin (Nitroglycerin (Sl Tab) 0.4 Mg) 1 tab Q5M PRN SL CHEST PAIN; Start 01/11/17 at 14:00 Miscellaneous Information (*Order Clarification Bulletin) NITROGLYCERIN CAP ( CHECK DOSE)... Q8H XX ; Start 01/12/17 at 10:00 Atorvastatin Calcium (Lipitor) 40 mg HS PO Last administered on 01/12/17 20:56 ; Admin Dose 40 MG; Start 01/12/17 at 21:00 ROOPA AGUILAR NP Jan 13, 2017 11:12
[2017-01-13] MEDS: DIGOXIN 0.25 MG TAB PO SCH (11:57)
[2017-01-13] MEDS ORDERED: REGADENOSON 0.4 MG/5 ML SYG ONE (14:24)
--- NOTE | 2017-01-13 15:34 | CONS ---
Date/Time of Note Date/Time of Note DATE: 01/13/17 TIME: 15:31 Assessment/Plan Assessment/Plan Additional Assessment/Plan Exertional nausea and possible shortness of breath Known history of coronary artery disease Hypertension Diabetes -Extensive discussion had with patient and daughter at bedside. Daughter has cath report from 4 years ago from [facility] which demonstrated severe proximal LAD disease with main [employer], severe disease in RCA and circumflex. At that time, discussion was had for CABG versus medical management and patient was not willing to undergo CABG. At the current time, patient with symptoms of exertional nausea and clammy sensation. Possibly dyspnea on exertion but denies chest pain. Would obtain Lexiscan nuclear stress test as well as viability study given nuclear report which appears to be done at [facility] over a year ago does demonstrate areas of infarction, no ischemia. Check echocardiogram. Continue aspirin, statin and beta-andriy if no complication. Consultation Date/Type/Reason Admit Date/Time Jan 10, 2017 at 19:37 Initial Consult Date Type of Consultation: cv 24 HR Interval Summary Free Text/Dictation Patient doing better. Discussion with patient and daughter at bedside, patient with symptoms of clammy sensation and nausea with ambulation. Denies exertional chest pain. Exam/Review of Systems Vital Signs Vitals Vital Signs Date Time Temp Pulse Resp B/P Pulse Ox O2 Delivery O2 Flow Rate FiO2 01/13/17 12:16 58 01/13/17 11:06 97.7 19 118/65 94 01/13/17 01:30 21 01/10/17 20:00 Nasal Cannula 2.0 Intake and Output 01/12/17 01/12/17 01/13/17 15:00 23:00 07:00 Intake Total 600 ml 450 ml Balance 600 ml 450 ml Exam No apparent distress Constitutional: alert, oriented Head: normocephalic Respiratory: other (Coarse breath sounds bilaterally, no wheezing) Cardiovascular: other (S1-S2 heard), regular rate and rhythm Gastrointestinal: bowel sounds, non-tender, soft Extremities: other (Trace edema) Results Result Diagram: 01/13/17 0546 01/13/17 0546 Results 24 hrs Laboratory Tests Test 01/12/17 17:25 01/12/17 20:53 01/13/17 05:46 01/13/17 07:58 Bedside Glucose 181 133 141 White Blood Count 10.7 Red Blood Count 4.58 Hemoglobin 13.2 Hematocrit 41.1 Mean Corpuscular Volume 89.7 Mean Corpuscular Hemoglobin 28.8 L Mean Corpuscular Hemoglobin Concent 32.1 Red Cell Distribution Width 15.1 H Platelet Count 246 Mean Platelet Volume 11.3 H Neutrophils % 46.8 Lymphocytes % 39.2 Monocytes % 7.6 Eosinophils % 4.9 Basophils % 0.9 Nucleated Red Blood Cells % 0.0 Neutrophils # 5.0 Lymphocytes # 4.2 H Monocytes # 0.8 Eosinophils # 0.5 Basophils # 0.1 Nucleated Red Blood Cells # 0.0 Sodium Level 140 Potassium Level 3.9 Chloride Level 107 Carbon Dioxide Level 27 Anion Gap 10 Blood Urea Nitrogen 16 Creatinine 0.79 Glucose Level 166 Calcium Level 8.9 Test 01/13/17 11:55 Bedside Glucose 143 Medications Medications Current Medications Furosemide (Lasix) 20 mg DAILY PO Last administered on 01/13/17 08:06; Admin Dose 20 MG; Start 01/11/17 at 09:00 Sotalol HCl (Betapace) 40 mg BID PO Last administered on 01/13/17 08:07; Admin Dose 40 MG; Start 01/10/17 at 21:00 Heparin Sodium (Porcine) (Heparin (5000 Units/0.5 ml)) 5,000 unit BID SC Last administered on 01/13/17 08:05; Admin Dose 5,000 UNIT; Start 01/10/17 at 21:00 Ondansetron HCl (Zofran Inj) 4 mg Q6H PRN IV NAUSEA AND/OR VOMITING; Start at 20:00 Diagnostic Test (Pha) (Accu-Chek) 1 ea 02 XX ; Start 01/11/17 at 02:00 Insulin Glargine (Lantus) 10 unit DAILY@08 SC Last administered on 01/13/17 08 :05; Admin Dose 10 UNIT; Start 01/11/17 at 08:00 Miscellaneous Information 1 ea NOTE XX ; Start 01/11/17 at 00:45 Glucose (Glutose) 15 gm Q15M PRN PO DECREASED GLUCOSE; Start 01/11/17 at 00:45 Glucose (Glutose) 22.5 gm Q15M PRN PO DECREASED GLUCOSE; Start 01/11/17 at 00: 45 Dextrose (D50w Syringe) 25 ml Q15M PRN IV DECREASED GLUCOSE; Start 01/11/17 at 00:45 Dextrose (D50w Syringe) 50 ml Q15M PRN IV DECREASED GLUCOSE; Start 01/11/17 at 00:45 Glucagon (Glucagen) 1 mg Q15M PRN IM DECREASED GLUCOSE; Start 01/11/17 at 00:45 Glucose (Glutose) 15 gm Q15M PRN BUCCAL DECREASED GLUCOSE; Start 01/11/17 at 00 :45 Digoxin (Digoxin) 0.25 mg DAILY@13 PO Last administered on 01/12/17 13:28; Admin Dose 0.25 MG; Start 01/11/17 at 13:00 Docusate Sodium (Colace) 100 mg BID PO Last administered on 01/13/17 08:04; Admin Dose 100 MG; Start 01/11/17 at 21:00 Lisinopril (Zestril) 2.5 mg DAILY PO Last administered on 01/13/17 08:06; Admin Dose 2.5 MG; Start 01/11/17 at 14:30 Acetaminophen (Tylenol Tab) 650 mg Q6H PRN PO PAIN LEVEL 1-3 OR FEVER; Start at 14:00 Acetaminophen (Tylenol Supp) 650 mg Q6H PRN [place] PAIN LEVEL 1-3 OR FEVER; Start 01/11/17 at 14:00 Acetaminophen/ Hydrocodone Bitart ([place] (5/325)) 1 tab Q6H PRN PO MODERATE PAIN LEVEL 4-6; Start 01/11/17 at 14:00 Acetaminophen/ Hydrocodone Bitart ([place] (5/325)) 2 tab Q6H PRN PO SEVERE PAIN LEVEL 7-10; Start 01/11/17 at 14:00 Morphine Sulfate (morphine) 2 mg Q4H PRN IV SEVERE PAIN LEVEL 7-10; Start 01/11 at 14:00 Docusate Sodium (Colace) 100 mg Q12H PRN PO CONSTIPATION; Start 01/11/17 at 14: 00 Magnesium Hydroxide (Milk Of Mag) 30 ml DAILY PRN PO CONSTIPATION; Start at 14:00 Bisacodyl (Dulcolax Supp) 10 mg DAILY PRN [place] CONSTIPATION; Start 01/11/17 at 14 :00 Aspirin (Aspirin) 81 mg DAILY PO Last administered on 01/13/17 08:03; Admin Dose 81 MG; Start 01/12/17 at 09:00 Nitroglycerin (Nitroglycerin (Sl Tab) 0.4 Mg) 1 tab Q5M PRN SL CHEST PAIN; Start 01/11/17 at 14:00 Miscellaneous Information (*Order Clarification Bulletin) NITROGLYCERIN CAP ( CHECK DOSE)... Q8H XX Last administered on 01/13/17 10:58; Admin Dose 1 EA; Start 01/12/17 at 10:00 Atorvastatin Calcium (Lipitor) 40 mg HS PO Last administered on 01/12/17 20:56 ; Admin Dose 40 MG; Start 01/12/17 at 21:00 Famotidine (Pepcid) 20 mg DAILY PO ; Start 01/14/17 at 09:00 Ian Valdovinos DO Jan 13, 2017 15:34
--- NOTE | 2017-01-13 16:33 | RADRPT ---
AMENDMENT: 01/14/2017 2:45:20 PM Daisy Gold Md Delayed 24 hours post thallium 201 injection myocardial perfusion images were obtained, which do not reveal a redistribution of activity. Impression: There is no definite scintigraphic evidence to suggest the presence of viable myocardium. A call report was made to Dr. Valdovinos and a message with the results was left on his voice mail at 02 :44 p.m. on January 14, 2017. PROCEDURE: Lexiscan myocardial perfusion study CLINICAL INDICATION: 66 -year-old patient with coronary artery disease, complaining of chest pain. TECHNIQUE: Lexiscan 0.4 mg intravenously separate acquisition gated myocardial perfusion SPECT usi ng Tc 99m sestamibi 30.7 mCi intravenously at stress and Tl-201 4.3 mCi intravenously at rest was pe rformed using the rest/stress sequence. Poststress sestamibi SPECT images were obtained in the supi ne position. COMPARISON: No prior studies. FINDINGS: Perfusion images reveal a large size severe in degree predominantly nonreversible perfusion defect i n the apex, distal to mid anterior, distal lateral, distal septal and distal to mid inferior hernández, with a small reversible component located in the mid anterior , distal inferior and distal inferosep sherwin hernández. Lexiscan post stress gated SPECT images demonstrate moderate hypokinesis of the left ventricle. IMPRESSION: 1. The type and distribution of the scintigraphic abnormalities are most consistent with a large si ze predominantly nonreversible perfusion defect in the apex, distal to mid anterior, distal septal, distal lateral and distal to mid inferior hernández, with a small reversible component involving the mid anterior, distal inferior and distal inferoseptal hernández. 2. Moderate hypokinesis of the left ventricle. 3. The left ventricle ejection fraction at stress is 25%. A call report was made to Dr. Valdovinos on January 13, 2017 at 04:29 p.m. RPTAT: HH .Daisy Gold MD, MD Date Time Electronically viewed and signed by .Daisy Gold MD, MD on 01/14/2017 14:45 .L/
[2017-01-13] MEDS: ATORVASTATIN 40 MG TAB PO SCH (20:21)
[2017-01-13] MEDS: ZOLPIDEM 5 MG TAB PO PRN (20:40)
[2017-01-14] VITALS (12 sets, daily range): BP systolic 102–128; BP diastolic 53–70; PULSE 52–67; RESP 16–19
[2017-01-14] MEDS: [UNRECOGNIZED DRUG - REMARK] XX SCH (02:00)
[2017-01-14] MEDS: ACCU-CHEK XX SCH (02:16)
[2017-01-14 07:28] LABS: BASOPHIL # 0.1 10^3/ul (0.0-0.1); BASOPHILS % 1.1 % (0.0-2.0); EOSINOPHILS # 0.4 10^3/ul (0.0-0.5); EOSINOPHILS % 4.3 % (0.0-7.0); HEMATOCRIT 41.3 % (37.0-47.0); HEMOGLOBIN 13.4 g/dl (12.0-16.0); LYMPHOCYTES # 3.6 10^3/ul (0.8-2.9); LYMPHOCYTES % 37.5 % (15.0-51.0); MEAN CORPUSCULAR HEMOGLOBIN 29.4 pg (29.0-33.0); MEAN CORPUSCULAR HGB CONC 32.4 g/dl (32.0-37.0); MEAN CORPUSCULAR VOLUME 90.6 fl (82.0-101.0); MEAN PLATELET VOLUME 11.6 fl (7.4-10.4); MONOCYTE # 0.8 10^3/ul (0.3-0.9); MONOCYTES % 8.3 % (0.0-11.0); NEUTROPHIL # 4.6 10^3/ul (1.6-7.5); NEUTROPHILS % 48.5 % (39.0-77.0); PLATELET COUNT 244 10^3/UL (140-415); RED BLOOD COUNT 4.56 10^6/ul (4.20-5.40); RED CELL DISTRIBUTION WIDTH 15.1 % (11.5-14.5); WHITE BLOOD COUNT 9.5 10^3/ul (4.8-10.8)
[2017-01-14] MEDS: INSULIN ASPART [NOVOLOG] 3 ML PEN SC SCH ×4 (07:55→20:46)
[2017-01-14 07:59] LABS: CREATININE 0.86 mg/dl (0.44-1.00); POTASSIUM 4.2 mmol/L (3.5-5.1)
[2017-01-14] MEDS: FUROSEMIDE 20 MG TAB PO SCH (08:10)
[2017-01-14] MEDS: DOCUSATE SODIUM 100 MG CAP PO SCH ×2 (08:10→20:40)
[2017-01-14] MEDS: SOTALOL 80 MG TAB PO SCH ×2 (08:11→20:40)
[2017-01-14] MEDS: FAMOTIDINE 20 MG TAB PO SCH (08:11)
[2017-01-14] MEDS: ASPIRIN 81 MG TAB PO SCH (08:11)
[2017-01-14] MEDS: LISINOPRIL 5 MG TAB PO SCH (08:12)
[2017-01-14 08:13] LABS: PHOSPHORUS 4.5 mg/dl (2.5-4.9)
[2017-01-14] MEDS: INSULIN GLARGINE [LANtus] 3 ML PEN SC SCH (08:16)
[2017-01-14] MEDS: HEPARIN 5,000 UNIT/0.5 ML VIAL SC SCH ×2 (08:17→20:46)
--- NOTE | 2017-01-14 11:56 | PN ---
Date/Time of Note Date/Time of Note DATE: 01/14/17 TIME: 11:55 Assessment/Plan VTE Prophylaxis VTE Prophylaxis Intervention: heparin Lines/Catheters IV [facility]ter Type (from [facility]): [facility] Lock Urinary Cath still in place: No Assessment/Plan Chief Complaint/Hosp Course 1. Dyspnea on exertion. Patient has known history of ischemic cardiomyopathy. Chest x-ray showed no evidence of any acute CHF. The patient being followed by cardiology. The patient is scheduled for a nuclear cardiac stress test. Continue WOODY inhibitors and digoxin. Unable to tolerate beta blockers because of bradycardia. S/P nuclear medicine stress test on 01/13/2017 that showed a large size predominantly nonreversible perfusion defect in the apex, distal to mid anterior, distal septal, distal lateral and distal to mid inferior hernández, with a small reversible component involving the mid anterior, distal inferior and distal inferoseptal hernández. 2. CAD with known triple-vessel disease. Continue aspirin and statins. 3. Type 2 diabetes mellitus. Hemoglobin A1c 8.6. Continue sliding scale insulin. 4. Dyslipidemia. Continue statins. 5. History of CVA. Continue statins and aspirin. 6. Fluids, electrolytes, and nutrition. Carbohydrate controlled, low- cholesterol diet. 7. DVT prophylaxis. Subcutaneous heparin. 8. Plan. Continue current management. Await further recommendations from cardiology. Case discussed with Dr. Serra. Problems: Subjective 24 Hr Interval Summary Free Text/Dictation No chest pain reported. Exam/Review of Systems Vital Signs Vitals Vital Signs Date Time Temp Pulse Resp B/P Pulse Ox O2 Delivery O2 Flow Rate FiO2 01/14/17 11:21 98.4 57 19 120/58 95 01/13/17 01:30 21 01/10/17 20:00 Nasal Cannula 2.0 Intake and Output 01/13/17 01/13/17 01/14/17 15:00 23:00 07:00 Intake Total 800 ml 150 ml Balance 800 ml 150 ml Exam General: Obese 66 year-old female lying in bed in no apparent distress. HEENT: Normocephalic, atraumatic. Eyes: Anicteric sclerae, conjunctivae clear. ENT: Nasal septum midline, oral mucosa moist. Neck supple, no JVD noticed. Respiratory: Bilaterally diminished breath sounds. No use of accessory muscles of respiration. No adventitious breath sounds. Cardiovascular: S1, S2 heard. Regular rate and rhythm. Abdomen: Soft, nontender, and nondistended. Bowel sounds positive in all 4 quadrants. Genitourinary: Deferred. Extremities: No cyanosis, no clubbing, no edema. Peripheral pulses palpable. Neurologic: Cranial nerves II through XII grossly intact. The patient is awake, alert, and oriented. Skin: Normal skin turgor. No skin rashes. Results Result Diagram: 01/14/17 0615 01/14/17 0615 Results 24 hrs Laboratory Tests Test 01/13/17 11:55 01/13/17 16:56 01/13/17 20:18 01/14/17 02:08 Bedside Glucose 143 147 185 132 Test 01/14/17 06:15 01/14/17 08:08 White Blood Count 9.5 Red Blood Count 4.56 Hemoglobin 13.4 Hematocrit 41.3 Mean Corpuscular Volume 90.6 Mean Corpuscular Hemoglobin 29.4 Mean Corpuscular Hemoglobin Concent 32.4 Red Cell Distribution Width 15.1 H Platelet Count 244 Mean Platelet Volume 11.6 H Neutrophils % 48.5 Lymphocytes % 37.5 Monocytes % 8.3 Eosinophils % 4.3 Basophils % 1.1 Nucleated Red Blood Cells % 0.0 Neutrophils # 4.6 Lymphocytes # 3.6 H Monocytes # 0.8 Eosinophils # 0.4 Basophils # 0.1 Nucleated Red Blood Cells # 0.0 Sodium Level 141 Potassium Level 4.2 Chloride Level 107 Carbon Dioxide Level 28 Anion Gap 10 Blood Urea Nitrogen 13 Creatinine 0.86 Glucose Level 129 Calcium Level 9.0 Phosphorus Level 4.5 Magnesium Level 2.0 Bedside Glucose 134 Medications Medications Current Medications Furosemide (Lasix) 20 mg DAILY PO Last administered on 01/14/17 08:10; Admin Dose 20 MG; Start 01/11/17 at 09:00 Sotalol HCl (Betapace) 40 mg BID PO Last administered on 01/14/17 08:11; Admin Dose 40 MG; Start 01/10/17 at 21:00 Heparin Sodium (Porcine) (Heparin (5000 Units/0.5 ml)) 5,000 unit BID SC Last administered on 01/14/17 08:17; Admin Dose 5,000 UNIT; Start 01/10/17 at 21:00 Ondansetron HCl (Zofran Inj) 4 mg Q6H PRN IV NAUSEA AND/OR VOMITING; Start at 20:00 Diagnostic Test (Pha) (Accu-Chek) 1 ea 02 XX Last administered on 01/14/17 02: 16; Admin Dose 1 EA; Start 01/11/17 at 02:00 Insulin Glargine (Lantus) 10 unit DAILY@08 SC Last administered on 01/14/17 08 :16; Admin Dose 10 UNIT; Start 01/11/17 at 08:00 Miscellaneous Information 1 ea NOTE XX ; Start 01/11/17 at 00:45 Glucose (Glutose) 15 gm Q15M PRN PO DECREASED GLUCOSE; Start 01/11/17 at 00:45 Glucose (Glutose) 22.5 gm Q15M PRN PO DECREASED GLUCOSE; Start 01/11/17 at 00: 45 Dextrose (D50w Syringe) 25 ml Q15M PRN IV DECREASED GLUCOSE; Start 01/11/17 at 00:45 Dextrose (D50w Syringe) 50 ml Q15M PRN IV DECREASED GLUCOSE; Start 01/11/17 at 00:45 Glucagon (Glucagen) 1 mg Q15M PRN IM DECREASED GLUCOSE; Start 01/11/17 at 00:45 Glucose (Glutose) 15 gm Q15M PRN BUCCAL DECREASED GLUCOSE; Start 01/11/17 at 00 :45 Digoxin (Digoxin) 0.25 mg DAILY@13 PO Last administered on 01/12/17 13:28; Admin Dose 0.25 MG; Start 01/11/17 at 13:00 Docusate Sodium (Colace) 100 mg BID PO Last administered on 01/14/17 08:10; Admin Dose 100 MG; Start 01/11/17 at 21:00 Lisinopril (Zestril) 2.5 mg DAILY PO Last administered on 01/14/17 08:12; Admin Dose 2.5 MG; Start 01/11/17 at 14:30 Acetaminophen (Tylenol Tab) 650 mg Q6H PRN PO PAIN LEVEL 1-3 OR FEVER; Start at 14:00 Acetaminophen (Tylenol Supp) 650 mg Q6H PRN [place] PAIN LEVEL 1-3 OR FEVER; Start 01/11/17 at 14:00 Acetaminophen/ Hydrocodone Bitart ([place] (5/325)) 1 tab Q6H PRN PO MODERATE PAIN LEVEL 4-6; Start 01/11/17 at 14:00 Acetaminophen/ Hydrocodone Bitart ([place] (5/325)) 2 tab Q6H PRN PO SEVERE PAIN LEVEL 7-10; Start 01/11/17 at 14:00 Morphine Sulfate (morphine) 2 mg Q4H PRN IV SEVERE PAIN LEVEL 7-10; Start 01/11 at 14:00 Docusate Sodium (Colace) 100 mg Q12H PRN PO CONSTIPATION; Start 01/11/17 at 14: 00 Magnesium Hydroxide (Milk Of Mag) 30 ml DAILY PRN PO CONSTIPATION; Start at 14:00 Bisacodyl (Dulcolax Supp) 10 mg DAILY PRN [place] CONSTIPATION; Start 01/11/17 at 14 :00 Aspirin (Aspirin) 81 mg DAILY PO Last administered on 01/14/17 08:11; Admin Dose 81 MG; Start 01/12/17 at 09:00 Nitroglycerin (Nitroglycerin (Sl Tab) 0.4 Mg) 1 tab Q5M PRN SL CHEST PAIN; Start 01/11/17 at 14:00 Atorvastatin Calcium (Lipitor) 40 mg HS PO Last administered on 01/13/17 20:21 ; Admin Dose 40 MG; Start 01/12/17 at 21:00 Famotidine (Pepcid) 20 mg DAILY PO Last administered on 01/14/17 08:11; Admin Dose 20 MG; Start 01/14/17 at 09:00 ROOPA AGUILAR NP Jan 14, 2017 11:56
[2017-01-14] MEDS: DIGOXIN 0.25 MG TAB PO SCH (12:10)
--- NOTE | 2017-01-14 16:44 | CONS ---
Date/Time of Note Date/Time of Note DATE: 01/14/17 TIME: 16:41 Assessment/Plan Assessment/Plan Additional Assessment/Plan Exertional nausea and possible shortness of breath Ischemic cardiomyopathy Known history of coronary artery disease Hypertension Diabetes -Patient status post vasodilatory nuclear perfusion study as well as a viability study. There is small area of ischemia noted in the inferior territory and anterior territory. Viability study report with minimal area of viability seen. Images reviewed with radiology, there appears to be viability in the inferior territory and a small amount in the anterior territory. Will discuss with patient and daughter regarding results and best plan of care. Continue aspirin, statin therapy, no beta-andriy given bradycardia. Blood pressure permits, would start imdur. Consultation Date/Type/Reason Admit Date/Time Jan 10, 2017 at 19:37 Type of Consultation: cv 24 HR Interval Summary Free Text/Dictation Patient seen and examined it denies chest pain, shortness of breath or palpitations. Overall feeling better Exam/Review of Systems Vital Signs Vitals Vital Signs Date Time Temp Pulse Resp B/P Pulse Ox O2 Delivery O2 Flow Rate FiO2 01/14/17 15:08 98.4 55 16 126/66 95 01/13/17 01:30 21 01/10/17 20:00 Nasal Cannula 2.0 Intake and Output 01/13/17 01/13/17 01/14/17 15:00 23:00 07:00 Intake Total 800 ml 150 ml Balance 800 ml 150 ml Exam No apparent distress Constitutional: alert, oriented Head: normocephalic Respiratory: other (Coarse breath sounds bilaterally, no wheezing) Cardiovascular: other (S 1 S2 heard), regular rate and rhythm Gastrointestinal: bowel sounds, non-tender, soft Extremities: edema Results Result Diagram: 01/14/17 0615 01/14/17 0615 Results 24 hrs Laboratory Tests Test 01/13/17 16:56 01/13/17 20:18 01/14/17 02:08 01/14/17 06:15 Bedside Glucose 147 185 132 White Blood Count 9.5 Red Blood Count 4.56 Hemoglobin 13.4 Hematocrit 41.3 Mean Corpuscular Volume 90.6 Mean Corpuscular Hemoglobin 29.4 Mean Corpuscular Hemoglobin Concent 32.4 Red Cell Distribution Width 15.1 H Platelet Count 244 Mean Platelet Volume 11.6 H Neutrophils % 48.5 Lymphocytes % 37.5 Monocytes % 8.3 Eosinophils % 4.3 Basophils % 1.1 Nucleated Red Blood Cells % 0.0 Neutrophils # 4.6 Lymphocytes # 3.6 H Monocytes # 0.8 Eosinophils # 0.4 Basophils # 0.1 Nucleated Red Blood Cells # 0.0 Sodium Level 141 Potassium Level 4.2 Chloride Level 107 Carbon Dioxide Level 28 Anion Gap 10 Blood Urea Nitrogen 13 Creatinine 0.86 Glucose Level 129 Calcium Level 9.0 Phosphorus Level 4.5 Magnesium Level 2.0 Test 01/14/17 08:08 01/14/17 12:04 Bedside Glucose 134 165 Medications Medications Current Medications Furosemide (Lasix) 20 mg DAILY PO Last administered on 01/14/17 08:10; Admin Dose 20 MG; Start 01/11/17 at 09:00 Sotalol HCl (Betapace) 40 mg BID PO Last administered on 01/14/17 08:11; Admin Dose 40 MG; Start 01/10/17 at 21:00 Heparin Sodium (Porcine) (Heparin (5000 Units/0.5 ml)) 5,000 unit BID SC Last administered on 01/14/17 08:17; Admin Dose 5,000 UNIT; Start 01/10/17 at 21:00 Ondansetron HCl (Zofran Inj) 4 mg Q6H PRN IV NAUSEA AND/OR VOMITING; Start at 20:00 Diagnostic Test (Pha) (Accu-Chek) 1 ea 02 XX Last administered on 01/14/17 02: 16; Admin Dose 1 EA; Start 01/11/17 at 02:00 Insulin Glargine (Lantus) 10 unit DAILY@08 SC Last administered on 01/14/17 08 :16; Admin Dose 10 UNIT; Start 01/11/17 at 08:00 Miscellaneous Information 1 ea NOTE XX ; Start 01/11/17 at 00:45 Glucose (Glutose) 15 gm Q15M PRN PO DECREASED GLUCOSE; Start 01/11/17 at 00:45 Glucose (Glutose) 22.5 gm Q15M PRN PO DECREASED GLUCOSE; Start 01/11/17 at 00: 45 Dextrose (D50w Syringe) 25 ml Q15M PRN IV DECREASED GLUCOSE; Start 01/11/17 at 00:45 Dextrose (D50w Syringe) 50 ml Q15M PRN IV DECREASED GLUCOSE; Start 01/11/17 at 00:45 Glucagon (Glucagen) 1 mg Q15M PRN IM DECREASED GLUCOSE; Start 01/11/17 at 00:45 Glucose (Glutose) 15 gm Q15M PRN BUCCAL DECREASED GLUCOSE; Start 01/11/17 at 00 :45 Digoxin (Digoxin) 0.25 mg DAILY@13 PO Last administered on 01/12/17 13:28; Admin Dose 0.25 MG; Start 01/11/17 at 13:00 Docusate Sodium (Colace) 100 mg BID PO Last administered on 01/14/17 08:10; Admin Dose 100 MG; Start 01/11/17 at 21:00 Lisinopril (Zestril) 2.5 mg DAILY PO Last administered on 01/14/17 08:12; Admin Dose 2.5 MG; Start 01/11/17 at 14:30 Acetaminophen (Tylenol Tab) 650 mg Q6H PRN PO PAIN LEVEL 1-3 OR FEVER; Start at 14:00 Acetaminophen (Tylenol Supp) 650 mg Q6H PRN RI PAIN LEVEL 1-3 OR FEVER; Start 01/11/17 at 14:00 Acetaminophen/ Hydrocodone Bitart ([place] (5/325)) 1 tab Q6H PRN PO MODERATE PAIN LEVEL 4-6; Start 01/11/17 at 14:00 Acetaminophen/ Hydrocodone Bitart ([place] (5/325)) 2 tab Q6H PRN PO SEVERE PAIN LEVEL 7-10; Start 01/11/17 at 14:00 Morphine Sulfate (morphine) 2 mg Q4H PRN IV SEVERE PAIN LEVEL 7-10; Start 01/11 at 14:00 Docusate Sodium (Colace) 100 mg Q12H PRN PO CONSTIPATION; Start 01/11/17 at 14: 00 Magnesium Hydroxide (Milk Of Mag) 30 ml DAILY PRN PO CONSTIPATION; Start at 14:00 Bisacodyl (Dulcolax Supp) 10 mg DAILY PRN RI CONSTIPATION; Start 01/11/17 at 14 :00 Aspirin (Aspirin) 81 mg DAILY PO Last administered on 01/14/17 08:11; Admin Dose 81 MG; Start 01/12/17 at 09:00 Nitroglycerin (Nitroglycerin (Sl Tab) 0.4 Mg) 1 tab Q5M PRN SL CHEST PAIN; Start 01/11/17 at 14:00 Atorvastatin Calcium (Lipitor) 40 mg HS PO Last administered on 01/13/17 20:21 ; Admin Dose 40 MG; Start 01/12/17 at 21:00 Famotidine (Pepcid) 20 mg DAILY PO Last administered on 01/14/17 08:11; Admin Dose 20 MG; Start 01/14/17 at 09:00 Ian Valdovinos DO Jan 14, 2017 16:44
[2017-01-14] MEDS: ZOLPIDEM 5 MG TAB PO PRN (20:39)
[2017-01-14] MEDS: ATORVASTATIN 40 MG TAB PO SCH (20:39)
[2017-01-15] VITALS (11 sets, daily range): BP systolic 123–140; BP diastolic 59–76; PULSE 40–61; RESP 16–18
[2017-01-15] MEDS: ACCU-CHEK XX SCH (01:35)
[2017-01-15] MEDS: INSULIN ASPART [NOVOLOG] 3 ML PEN SC SCH ×2 (08:27→12:28)
[2017-01-15] MEDS: INSULIN GLARGINE [LANtus] 3 ML PEN SC SCH (08:27)
[2017-01-15] MEDS: FUROSEMIDE 20 MG TAB PO SCH (10:02)
[2017-01-15] MEDS: DOCUSATE SODIUM 100 MG CAP PO SCH (10:02)
[2017-01-15] MEDS: LISINOPRIL 5 MG TAB PO SCH (10:02)
[2017-01-15] MEDS: ASPIRIN 81 MG TAB PO SCH (10:03)
[2017-01-15] MEDS: FAMOTIDINE 20 MG TAB PO SCH (10:03)
[2017-01-15] MEDS: SOTALOL 80 MG TAB PO SCH (10:03)
[2017-01-15] MEDS: HEPARIN 5,000 UNIT/0.5 ML VIAL SC SCH (10:09)
--- NOTE | 2017-01-15 11:20 | CONS ---
Date/Time of Note Date/Time of Note DATE: 01/15/17 TIME: 11:18 Assessment/Plan Assessment/Plan Additional Assessment/Plan Exertional nausea and possible shortness of breath Ischemic cardiomyopathy Known history of coronary artery disease Hypertension Diabetes -Extensive discussion had with patient and son-in-law at bedside. Patient with minimal area of reversibility noted on stress nuclear perfusion study. Viability study performed demonstrated minimal viability in inferior and anterior territories. Extensive discussion as mentioned had with family regarding results. Based on cath report from outside facility, patient with [employer] of LAD and severe proximal disease of RCA and circumflex. I am unsure patient will have a significant quality of life benefit or improvement in ejection fraction after coronary artery bypass grafting given the results of our perfusion studies. Furthermore, patient also with history of CVA and she is concerned for recurrence during open heart surgery. Would recommend aggressive medical management at the current time. Patient has remained asymptomatic since hospitalization and with ambulation. Would recommend tight blood pressure control, diabetes management, nutrition evaluation. I will start Ranexa. DC planning Consultation Date/Type/Reason Admit Date/Time Jan 10, 2017 at 19:37 Type of Consultation: cv 24 HR Interval Summary Free Text/Dictation Patient seen and examined. Patient ambulate in the hallways without any symptoms of exertional shortness of breath, nausea, chest pain or dizziness. Son-in-law at bedside Exam/Review of Systems Vital Signs Vitals Vital Signs Date Time Temp Pulse Resp B/P Pulse Ox O2 Delivery O2 Flow Rate FiO2 01/15/17 11:09 97.5 60 18 140/71 96 01/13/17 01:30 21 Intake and Output 01/14/17 01/14/17 01/15/17 15:00 23:00 07:00 Intake Total 800 ml 100 ml Balance 800 ml 100 ml Exam No apparent distress Constitutional: alert, oriented Head: normocephalic Respiratory: other (Coarse breath sounds bilaterally, no wheezing) Cardiovascular: other (S1-S2 heard), regular rate and rhythm Gastrointestinal: bowel sounds, non-tender, soft Extremities: edema Results Result Diagram: 01/14/17 0615 01/14/17 0615 Results 24 hrs Laboratory Tests Test 01/14/17 12:04 01/14/17 17:10 01/14/17 20:24 01/15/17 01:30 Bedside Glucose 165 133 219 146 Test 01/15/17 08:16 Bedside Glucose 142 Medications Medications Current Medications Furosemide (Lasix) 20 mg DAILY PO Last administered on 01/15/17 10:02; Admin Dose 20 MG; Start 01/11/17 at 09:00 Sotalol HCl (Betapace) 40 mg BID PO Last administered on 01/15/17 10:03; Admin Dose 40 MG; Start 01/10/17 at 21:00 Heparin Sodium (Porcine) (Heparin (5000 Units/0.5 ml)) 5,000 unit BID SC Last administered on 01/15/17 10:09; Admin Dose 5,000 UNIT; Start 01/10/17 at 21:00 Ondansetron HCl (Zofran Inj) 4 mg Q6H PRN IV NAUSEA AND/OR VOMITING; Start at 20:00 Diagnostic Test (Pha) (Accu-Chek) 1 ea 02 XX Last administered on 01/15/17 01: 35; Admin Dose 1 EA; Start 01/11/17 at 02:00 Insulin Glargine (Lantus) 10 unit DAILY@08 SC Last administered on 01/15/17 08 :27; Admin Dose 10 UNIT; Start 01/11/17 at 08:00 Miscellaneous Information 1 ea NOTE XX ; Start 01/11/17 at 00:45 Glucose (Glutose) 15 gm Q15M PRN PO DECREASED GLUCOSE; Start 01/11/17 at 00:45 Glucose (Glutose) 22.5 gm Q15M PRN PO DECREASED GLUCOSE; Start 01/11/17 at 00: 45 Dextrose (D50w Syringe) 25 ml Q15M PRN IV DECREASED GLUCOSE; Start 01/11/17 at 00:45 Dextrose (D50w Syringe) 50 ml Q15M PRN IV DECREASED GLUCOSE; Start 01/11/17 at 00:45 Glucagon (Glucagen) 1 mg Q15M PRN IM DECREASED GLUCOSE; Start 01/11/17 at 00:45 Glucose (Glutose) 15 gm Q15M PRN BUCCAL DECREASED GLUCOSE; Start 01/11/17 at 00 :45 Docusate Sodium (Colace) 100 mg BID PO Last administered on 01/15/17 10:02; Admin Dose 100 MG; Start 01/11/17 at 21:00 Lisinopril (Zestril) 2.5 mg DAILY PO Last administered on 01/15/17 10:02; Admin Dose 2.5 MG; Start 01/11/17 at 14:30 Acetaminophen (Tylenol Tab) 650 mg Q6H PRN PO PAIN LEVEL 1-3 OR FEVER; Start at 14:00 Acetaminophen (Tylenol Supp) 650 mg Q6H PRN [place] PAIN LEVEL 1-3 OR FEVER; Start 01/11/17 at 14:00 Acetaminophen/ Hydrocodone Bitart ([place] (5/325)) 1 tab Q6H PRN PO MODERATE PAIN LEVEL 4-6; Start 01/11/17 at 14:00 Acetaminophen/ Hydrocodone Bitart ([place] (5/325)) 2 tab Q6H PRN PO SEVERE PAIN LEVEL 7-10; Start 01/11/17 at 14:00 Morphine Sulfate (morphine) 2 mg Q4H PRN IV SEVERE PAIN LEVEL 7-10; Start 01/11 at 14:00 Docusate Sodium (Colace) 100 mg Q12H PRN PO CONSTIPATION; Start 01/11/17 at 14: 00 Magnesium Hydroxide (Milk Of Mag) 30 ml DAILY PRN PO CONSTIPATION; Start at 14:00 Bisacodyl (Dulcolax Supp) 10 mg DAILY PRN [place] CONSTIPATION; Start 01/11/17 at 14 :00 Aspirin (Aspirin) 81 mg DAILY PO Last administered on 01/15/17 10:03; Admin Dose 81 MG; Start 01/12/17 at 09:00 Nitroglycerin (Nitroglycerin (Sl Tab) 0.4 Mg) 1 tab Q5M PRN SL CHEST PAIN; Start 01/11/17 at 14:00 Atorvastatin Calcium (Lipitor) 40 mg HS PO Last administered on 01/14/17 20:39 ; Admin Dose 40 MG; Start 01/12/17 at 21:00 Famotidine (Pepcid) 20 mg DAILY PO Last administered on 01/15/17 10:03; Admin Dose 20 MG; Start 01/14/17 at 09:00 Ian Valdovinos DO Jan 15, 2017 11:20
[2017-01-15] MEDS ORDERED: RANOLAZINE (SR) 500 MG TAB PO SCH (11:30)
--- NOTE | 2017-01-15 12:09 | PDOCDIS ---
Discharge Instructions DIAGNOSIS Discharge Diagnosis CAD CONDITION Patient Condition: Stable HOME CARE INSTRUCTIONS: Diet Instructions: Low Fat /CholesterolSpecial Diet: cardiac, carb controlled FOLLOW UP/APPOINTMENTS Follow-up Plan Ian Valdovinos DO Specialty Cardiovascular Disease Office Address [facility] [phone] Office OTHER ORDERS: Other Orders: 1. Take medications as per prescription. 2. Low-cholesterol, carb controlled diet. 3. Activities as tolerated. 4. Follow-up with Dr. Valdovinos 1 month. 5. Please call 911 or go the nearest emergency room if you have any chest pain or significant shortness of breath. ROOPA AGUILAR NP Jan 15, 2017 12:09
[2017-01-15] MEDS ORDERED: RANO500T2 PO (12:12)
[2017-01-15] MEDS ORDERED: LANT3I SC (12:24)
[2017-01-15] MEDS ORDERED: METF500T4 PO (12:24)
--- NOTE | 2017-01-15 13:34 | RADRPT ---
Echocardiogram Report Patient Name: KRYSTYNA CAMPBELL Gender: Female Date: 1950 Study Date: 12-Jan-2017 Batt Machine Operator: REJI Location: [id number] Ref. Physician: TROY MANCIA Quality: Adequate Procedures: Transthoracic echocardiogram examination. Indications: Chest Pain. 2D/M Mode Doppler Measurement Value Normal Range Measurement Value Normal Range LVIDd 2D 4.8 3.5 - 5.6 cm AV Peak Luc 1.2 m/sec LVIDs 2D 2.7 2.1 - 4.1 cm AV Peak PG 5.8 mmHg LVPWd 2D 1.3 0.6 - 1.1 cm LVOT Peak Luc 0.6 m/sec IVSd 2D 1.2 0.6 - 1.1 cm LVOT Peak PG 1.6 mmHg AoR Diam 2D 3.0 2.0 - 3.7 cm MV E Peak Luc 0.4 m/sec LA Dimen 2D 3.0 2.3 - 4.0 cm MV A Peak Luc 1.0 m/sec MV E/A 0.4 MV Decel Time 283 msec MV Decel [place] 1 MV E/A 0.4 TR Peak Luc 2.3 m/sec TR Peak PG 21.7 mmHg RVSP 24.7 mmHg Findings Left Ventricle: Normal left ventricular cavity size. Moderate to severe left ventricular systolic dysfunction. Mild concentric left ventricular hypertrophy. The left ventricular ejection fraction is visually estimated at 30 %. These segments of the LV are hypokinetic: mid septum segment, inferior base segment and anteroseptum base segment. These segments of the LV are akinetic: anterior apex segment, lateral apex segment, inferior apex segment, septum base segment and inferior mid segment. Right Ventricle: Normal right ventricular size. Normal right ventricular systolic function. Left Atrium: The left atrium is normal in size and appearance. Right Atrium: The right atrium is normal in size and appearance. Mitral Valve: Normal appearance of the mitral valve leaflets. Mild mitral annular calcification. Mild to moderate mitral regurgitation. Aortic Valve: No hemodynamically significant aortic stenosis by Doppler. Aortic cusps appear mildly calcified imaged only from apical views. Trace aortic regurgitation. Tricuspid Valve: Normal appearance of the tricuspid valve. The estimated Peak RVSP is 25 mmHg. There is mild tricuspid regurgitation. Pulmonic Valve: The pulmonic valve is not well visualized. Pericardium: Normal pericardium with no significant pericardial effusion. IVC: Normal inferior vena cava appearance and respiratory collapse. Conclusions 1.Moderate to severe left ventricular systolic dysfunction. EF 30%. Mild left ventricular hypertrophy. 2.Normal right ventricular size. Normal right ventricular systolic function. 3.The left atrium is normal in size and appearance. 4.The right atrium is normal in size and appearance. 5.Mild to moderate mitral regurgitation. 6.No hemodynamically significant aortic stenosis by Doppler. Trace aortic regurgitation. 7.The estimated Peak RVSP is 25 mmHg. There is mild tricuspid regurgitation. 8.Normal pericardium with no significant pericardial effusion. Electronically Signed By: Ian Valdovinos 15-Jan-2017 13:34:13 -0700 Patient Name: KRYSTYNA CAMPBELL Study Date: 12-Jan-2017 [id number]
--- NOTE | 2017-01-15 13:41 | EN ---
Date/Time of Note Date/Time of Note DATE: 01/15/17 TIME: 13:39 Event Note Cardiology Cardiology Event Note Kristin Scan ECG Report 01/13/17 66 y/o female with cad and CHF Baseline ECG SR @ 59bpm, inf and antlat q waves, non-specific ST abnormalities BP 128/67 Lexiscan administered as per protocol Symptoms of SOB which resolved No significant ECG changes or arrhythmia Peak heart rate 84 Peak blood pressure 136/60 ECG interpretation: Non-ischemic Ian Valdovinos DO Jan 15, 2017 13:41
[2017-01-15] MEDS ORDERED: [UNRECOGNIZED DRUG - OTHER] PO (16:29)
--- NOTE | 2017-01-15 17:57 | DS ---
DATE OF ADMISSION: 01/10/2017 DATE OF DISCHARGE: 01/15/2017 FINAL DIAGNOSES: 1. Dyspnea on exertion. Resolved. 2. Known triple-vessel coronary artery disease (CAD) with cardiac stress test showing a small reversible component involving the mid anterior, distal inferior and distal inferoseptal hernández. Plan for aggressive medical management. 3. Coronary artery disease (CAD) with known triple-vessel disease. 4. Type 2 diabetes mellitus. 5. Dyslipidemia. 6. History of cerebrovascular accident (CVA). 7. Dyslipidemia. 8. Obesity. CONSULTANTS: Dr. Ian Valdovinos, Cardiology. HOSPITAL COURSE: This is a 66-year-old female with known history of CVA in 2016 with no residual deficit, coronary artery disease with report of myocardial infarction 4 years ago, type 2 diabetes mellitus, essential hypertensive, and cardiomyopathy who came to [facility] from [facility] due to insurance reasons due to reported diaphoresis and dyspnea on exertion. The patient was admitted to inpatient telemetry floor. Cardiology consult was obtained. The patient was maintained on aspirin and statins. The patient underwent a nuclear medicine cardiac stress test that showed a large-sized predominantly nonreversible perfusion defect in the apex, distal to mid anterior, distal septal, distal lateral and distal to mid inferior hernández, with small reversible component involving the mid anterior, distal inferior and distal inferoseptal hernández. The patient's greenhouse instructor had a conversation with the patient's family and the clinical decision was made to aggressively manage the patient medically. The patient's 2D echocardiogram showed ejection fraction of 30 percent. The patient was maintained on WOODY inhibitors and digoxin. The patient was not maintained on any beta blockers because of the significant bradycardia. However, later during the patient's hospital course beta blockers were resumed. The patient has underlying type 2 diabetes mellitus. The patient's hemoglobin A1c was found to be 8.6. The patient was maintained on sliding scale insulin along with basal insulin with well controlled blood sugars. The patient only take sulfonylureas at home. The patient will be added on metformin upon discharge. The patient has known history of dyslipidemia. The patient was maintained on statins. She has history of CVA. She was continued on statins and aspirin for the same. The patient's symptoms improved and the patient was cleared by Cardiology to be discharged home with aggressive medical management and close Cardiology follow up as outpatient. DISCHARGE DISPOSITION AND PLAN: The patient will be discharged home today. The patient was instructed to take medications as per prescription. She was instructed to follow a low cholesterol, carbohydrate-controlled diet. The patient was instructed to resume activities as tolerated. The patient was instructed to follow up with Dr. Valdovinos. She was instructed to go to the nearest emergency room if she has any chest pain or significant shortness of breath. The patient's family verbalized understanding of the discharge instructions. DISCHARGE CONDITION: Stable. DISCHARGE MEDICATIONS: 1. Metformin 500 mg by mouth twice a day with meals. 2. Ranexa 500 mg by mouth every 12 hours. 3. Aspirin 81 mg by mouth daily. 4. Lasix 20 mg by mouth daily. 5. Lisinopril 2.5 mg by mouth daily. 6. Sotalol 40 mg by mouth twice a day. 7. Glyburide 5 mg by mouth twice a day. PERTINENT LABS AND DIAGNOSTIC DATA: 1. 2D echocardiogram. Ejection fraction of 30 percent. Mild left ventricular hypertrophy. Estimated RVSP is 25 mmHg. 2. Nuclear medicine cardiac stress test. Large size predominantly nonreversible perfusion defects at the apex distal to mid anterior, distal septal, distal lateral and distal to mid inferior hernández, with small reversible component involving the mid anterior distal inferior and distal inferoseptal hernández. Moderate hypokinesis of the left ventricle. Left ventricular ejection fraction at stress is 25 percent. 3. Latest CBC, WBC 9.5, hemoglobin 13.4, hematocrit 41.3, and platelet count 244. 4. Latest BMP, sodium 141, potassium 4.2, chloride 104, carbon dioxide 20, anion gap 10, BUN 13, creatinine 0.8, glucose 129, calcium 9.0, phosphorus 4.5, and magnesium 2.0. At this time I would like to thank Dr. Valdovinos for seeing the patient and providing clinical recommendations. Case and management of this patient was fully discussed with Dr. Serra. Approximately 40 minutes was spent on coordinating the discharge of this patient. Dictated By: Tony Cabrera NP /j carlos/lidia /Document#: [id number] DARA
== END 2017-01-15 17:05 | disposition home or self-care (01) | DRG 303 ==
LOC: TEL 19:37
PROVIDERS: ADMIT Internal Medicine; ATTEND Internal Medicine
DX: I25.119 Atherosclerotic heart disease of native coronary artery with unspecified angina pectoris (principal); I11.0 Hypertensive heart disease with heart failure; I50.22 Chronic systolic (congestive) heart failure; E11.9 Type 2 diabetes mellitus without complications; Z86.73 Personal history of transient ischemic attack (TIA), and cerebral infarction without residual deficits; I25.2 Old myocardial infarction; E78.5 Hyperlipidemia, unspecified; I25.5 Ischemic cardiomyopathy; E66.9 Obesity, unspecified; Z68.37 Body mass index [BMI] 37.0-37.9, adult
CPT/HCPCS: 71010; 78452; 80048; 80053; 80061; 82550; 82553; 82962; 83036; 83735; 84100; 84436; 84443; 84479; 84484; 85025; 87040; 87086; 90686; 93017; 93306; 93970; 97162; A9500; A9505; J1644; J1815; J2785